=== PATIENT | female | born 2000 | race African-American/Black ===

== ENCOUNTER 2022-04-24 15:39 | Emergency (ER) | payer OTHER, SELFPAY ==
[2022-04-24] VITALS (9 sets, daily range): BP systolic 115–130; BP diastolic 71–83; PULSE 70–98; RESP 16–18; TEMP 36.5; O2SAT 96–100
[2022-04-24] MEDS: HYDROcodone/acetaminophen (*CRX) 5-325 MG TABLET 1 TAB PO (16:42)
--- NOTE | 2022-04-24 17:07 | ED.LOWEXIN ---
HPI - Extremity Injury (Lower) General Chief Complaint: Extremity Injury, Lower Stated Complaint: r foot broken - didnt take pain meds, hurts/swolle Time Seen by Provider: 04/24/22 16:19 History of Present Illness HPI Narrative: Patient is a 22-year-old female here for evaluation of right foot pain via EMS for the past 4 days. Patient states that she was evaluated at [place] upon symptom onset, was diagnosed with a fracture of the right outer foot, and has been wearing a boot and was told to follow-up with orthopedics. She has not taken any prescribed pain medicine for her pain. She presents today via EMS due to pain in her right foot. She has been icing it without relief. Denies any swelling, difficulty moving the foot, fevers, chills. Related Data Home Medications Medication Instructions Recorded Confirmed No Home Medications 04/24/22 04/24/22 Allergies Allergy/AdvReac Type Severity Reaction Status Date / Time No Known Allergies Allergy Verified 04/24/22 15:54 Review of Systems Review of Systems: Gen: Denies fevers or chills Eyes: Denies eye pain or visual change ENT: Denies congestion Respiratory: Denies shortness of breath or cough CV: Denies chest pain or palpitations GI: Denies abdominal pain nausea, emesis or diarrhea denies burning, urgency, frequency or hematuria Musculoskeletal: Reports right foot pain. Denies back pain or muscle pain Neuro: Denies numbness, tingling, weakness or focal weakness Skin: Denies rash Except as documented, all other systems reviewed and negative Exam Narrative: Gen: Alert, oriented, no acute disease Eyes: EOMI, no icterus Pulm: Respirations even and unlabored, symmetric thorax expansion, no audible stridor or visible cyanosis CV: Regular rate per telemetry GI: No distension, no voluntary/involuntary guarding Neuro: AOx4, moves all extremities without apparent difficulty or weakness, follows commands MSK: Walking boot in place. Bony tenderness along lateral aspect of right foot. Able to move toes. Compartments are soft and non-swollen. Forgo complete ROM exam to maintain immobility near fracture. Skin: No jaundice, no visible bruising, rashes, lesions or wounds on exposed skin Psych: Normal mood/affect, insight/judgement good, adequate fund of knowledge, recent/remote memory intact Course Vital Signs Vital signs: Vital Signs Pulse Rate 98 08/13/22 15:42 Respiratory Rate 18 04/24/22 15:42 Blood Pressure 130/79 04/24/22 15:42 Pulse Oximetry 98 04/24/22 15:42 Oxygen Delivery Room Air 04/24/22 15:42 Temperature 97.7 F 04/24/22 16:16 Pulse Rate 82 04/24/22 18:05 Respiratory Rate 18 04/24/22 18:05 Blood Pressure 117/78 04/24/22 18:05 Pulse Oximetry 96 04/24/22 18:05 Oxygen Delivery Room Air 04/24/22 15:42 MDM - Extremity Injury (Lower) MDM Narrative Medical decision making narrative: 22-year-old female here for evaluation of right foot pain for 1 week after being diagnosed with a foot fracture at outside hospital. She has not taken any of her prescribed pain medicine. Here, she is nontoxic-appearing, foot is warm and well-perfused, compartments are soft, there is bony tenderness over the area where she said she had a fracture. She was given her home dose of medication with resolution of her pain. Instructed patient that she may take her pain medicine as prescribed and to follow-up with the orthopedist as scheduled. She was given reasons to return to the ED and she voiced understanding. Discharge Plan Discharge Clinical Impression: Acute foot pain Patient Disposition: Home, Self-Care Condition: Stable Instructions: Antibiotic Form, Foot Fracture in Adults (ED) Additional Instructions: Please take the pain medicine as prescribed by the doctor at [facility]. Return to the ED if you cannot move the foot, the foot feels numb, your pain is uncontrolled by the medication you were prescribed. Follow up with the orthoped
== END 2022-04-24 18:05 | disposition home or self-care (01) ==
PROVIDERS: Emergency Provider Emergency Medicine
DX: M79.671 Pain in right foot (principal); S92.901D Unspecified fracture of right foot, subsequent encounter for fracture with routine healing; X58.XXXD Exposure to other specified factors, subsequent encounter
CPT/HCPCS: 99283; A9270

== ENCOUNTER 2023-06-12 20:53 | Emergency (ER) | payer BC, SELFPAY ==
--- NOTE | ~2023-06-12 | CT_ITS ---
EXAMINATION: CT abdomen pelvis w con DATE: 06/13/2023 03:33 INDICATION: Gastric intestinal hemorrhage. TECHNIQUE: Computed tomography (CT) of the abdomen and pelvis was performed with 100 mL Omnipaque 350 intravenous contrast. Automated exposure control and iterative reconstruction technique were employe d. The dose-length product was 811.63 mGy-cm. COMPARISON: None. FINDINGS: The visualized portions of the lung bases demonstrate mild atelectasis. No pleural effusion . The heart size is normal. No pericardial effusion. The liver, gallbladder, spleen, pancreas, adrena l glands, and kidneys are normal. There is wall thickening of the colon involving the distal transver se colon and proximal descending colon, consistent with colitis. The appendix is normal. There are no dilated loops of bowel. There is physiologic fluid in the pelvis. There are no pathologically enlarg ed lymph nodes. There is no significant stenosis of celiac axis, superior mesenteric artery, or infer ior mesenteric artery. There is mild lumbar spondylosis. IMPRESSION: 1. Colitis centered at the splenic flexure, which may be seen with infectious colitis or ischemic col itis (such as from a hypotensive episode). Reviewed, dictated and finalized at location E. IMPRESSION: 1. Colitis centered at the splenic flexure, which may be seen with infectious c olitis or ischemic colitis (such as from a hypotensive episode).
[2023-06-12 21:11] VITALS: BP 138/80; PULSE 96; RESP 20; TEMP 36.1; O2SAT 100
[2023-06-12 21:19] LABS: Basophils Absolute Auto 0.1 K/mm3 (0.0-0.1); Basophils Percent Auto 0.5 % (0.2-1.2); Eosinophils Absolute Auto 0.1 K/mm3 (0-0.3); Eosinophils Percent Auto 0.5 % (0-4.4); Hematocrit 43.9 % (37.0-47.0); Hemoglobin 14.8 g/dL (12.0-15.0); Immature Granulocyte Absolute 0.04 K/mm3 (0.00-0.031); Immature Granulocyte Percent A 0.3 % (0-0.5); Lymphocytes Absolute Auto 2.72 K/mm3 (0.9-3.2); Lymphocytes Percent Auto 21.4 % (18.3-44.2); Mean Corpuscular HGB Conc 33.7 g/dl (32-36); Mean Corpuscular Hemoglobin 30.6 pg (26-34); Mean Corpuscular Volume 90.9 fl (80-100); Monocytes Absolute Auto 1.4 K/mm3 (0.1-0.6); Monocytes Percent Auto 11.1 % (2.6-8.5); Neutrophils Absolute Auto 8.4 K/mm3 (1.3-6.7); Neutrophils Percent Auto 66.2 % (45.5-73.1); Platelet Count Result 298 k/mm3 (150-375); Red Blood Count 4.83 M/mm3 (4.2-5.4); Red Cell Distribution Width 12.8 % (11.5-14.5); White Blood Count 12.7 K/mm3 (4.5-10.0)
[2023-06-12 21:27] LABS: Alanine Aminotransferase 18 U/L (6-35); Albumin Level 4.4 g/dL (3.5-5.1); Alkaline Phosphatase 70 U/L (38-126); Anion Gap 7 mmol/L (8-16); Aspartate Amino Transferase 21 U/L (14-36); Bilirubin,Total 1.8 mg/dL (0.2-1.3); Blood Urea Nitrogen 7 mg/dL (7-17); Calcium 9.3 mg/dL (8.4-10.2); Carbon Dioxide 25 mmol/L (22-30); Chloride 107 mmol/L (98-107); Estimated CRCL calculation 105 ml/min; Estimated Glomerular Filt Rate > 60; Glucose 107 mg/dL (65-110); INR 1.1; Potassium 3.7 mmol/L (3.4-5.0); Prothrombin Time 14.4 Seconds (11.1-14.7); Sodium 139 mmol/L (137-145)
[2023-06-12 21:28] LABS: Partial Thromboplastin Time 28.3 SECONDS (22.3-36.8)
--- NOTE | 2023-06-12 22:22 | PC.NURSE ---
Patient and visitor come to desk to state she will be leaving cause the wait times. This RN informed patient of risks of leaving before being seen by a provider, and benefits of staying. Patient stated We're going to leave, cause were done waiting. Patient ambulated out of the ED with a steady gait with her visitor by her side.
[2023-06-13] VITALS (39 sets, daily range): BP systolic 94–148; BP diastolic 46–93; PULSE 77–84; RESP 16; O2SAT 95–100
--- NOTE | 2023-06-13 00:49 | PC.NURSE ---
Patient comes to the desk to inform she is still here. This RN informed her that her visitor stated they were leaving and she was removed from the tracker. Patient placed back on the board and is still here.
[2023-06-13] MEDS: MORPHINE SULFATE (*CRX) 4 MG/ML INJ IV PUSH (03:03)
[2023-06-13] MEDS: SODIUM CHLORIDE 0.9% IV 1,000 ML 999 ML IV CONT (03:03)
[2023-06-13] MEDS: metroNIDAZOLE 500 MG/ISO 100ML 500 MG/100 ML BAG 100 MG IVPB (05:42)
--- NOTE | 2023-06-13 05:47 | ED.GIBLEED ---
HPI - GI Bleed General Chief complaint: GI Bleed Stated complaint: Bloody stool, lower abd cramping Time Seen by Provider: 06/13/23 01:54 History of Present Illness HPI Narrative: Patient presents to the emergency department from home. She has had persistent bloody bowel movements for the past 24 hours. Multiple episodes a day. Also lower abdominal discomfort. Denies fevers and chills. Has had nausea without vomiting. Does not take blood thinners. Had similar symptoms but milder a week ago that resolved on their own. Related Data Allergies Allergy/AdvReac Type Severity Reaction Status Date / Time No Known Allergies Allergy Verified 06/12/23 21:15 Review of Systems Review of Systems: Negative except what is documented in the HPI Exam Narrative: GENERAL: Well-appearing, well-nourished, and in no acute distress. HEAD: Normocephalic, atraumatic. EYES: PERRLA and EOMI. ENT: Nares clear, no rhinorrhea or epistaxis. Mucous membranes moist. NECK: Supple. CHEST: Clear to auscultation. No respiratory distress. HEART: Regular rate and rhythm. ABDOMEN: Soft, nondistended. Tender left side and epigastric region EXTREMITIES: Normal range of motion. No edema. SKIN: Warm, dry, no rash. NEURO: No focal deficits. Alert and oriented x3. PSYCH: Normal mood and affect. Course Course Emergency Course: Differential diagnosis includes but not limited to colitis, diverticulitis, acute appendicitis, obstruction, urinary tract infection CAT scan consistent with infectious colitis. Patient has not had any episodes of bloody diarrhea in the emergency department. Her vital signs are stable and her labs are benign. White blood cell count slightly elevated. After getting IV antibiotics will DC patient to home to follow-up with GI Vital Signs Vital signs: Vital Signs Temperature 36.1 C L 06/12/23 21:11 Pulse Rate 96 06/12/23 21:11 Respiratory Rate 20 06/12/23 21:11 Blood Pressure 138/80 06/12/23 21:11 Pulse Oximetry 100 06/12/23 21:11 Oxygen Delivery Room Air 06/12/23 21:11 Temperature 36.1 C L 06/12/23 21:11 Pulse Rate 96 06/12/23 21:11 Respiratory Rate 20 06/12/23 21:11 Blood Pressure 114/57 L 06/13/23 04:46 Pulse Oximetry 99 06/13/23 04:46 Oxygen Delivery Room Air 06/12/23 21:11 MDM - GI Bleed Lab Data 06/12/23 21:14 06/12/23 21:14 Labs: Lab Results 06/12/23 06/12/23 Range/Units 21:13 21:14 WBC 12.7 H (4.5-10.0) K/mm3 RBC 4.83 (4.2-5.4) M/mm3 Hgb 14.8 (12.0-15.0) g/dL Hct 43.9 (37.0-47.0) % MCV 90.9 (80-100) fl MCH 30.6 (26-34) pg MCHC 33.7 (32-36) g/dl RDW 12.8 (11.5-14.5) % Plt Count 298 (150-375) k/mm3 MPV 10.0 (7.4-10.4) fl Immature Gran % (Auto) 0.3 (0-0.5) % Neut % (Auto) 66.2 (45.5-73.1) % Lymph % (Auto) 21.4 (18.3-44.2) % [place] % (Auto) 11.1 H (2.6-8.5) % Eos % (Auto) 0.5 (0-4.4) % Baso % (Auto) 0.5 (0.2-1.2) % Lymph # (Auto) 2.72 (0.9-3.2) K/mm3 [place] # (Auto) 1.4 H (0.1-0.6) K/mm3 Eos # (Auto) 0.1 (0-0.3) K/mm3 Baso # (Auto) 0.1 (0.0-0.1) K/mm3 Abs Immat Gran (auto) 0.04 H (0.00-0.031) K/mm3 Absolute Neuts (auto) 8.4 H (1.3-6.7) K/mm3 Absolute Nucleated RBC 0.0 (0.0-0.012) K/mm3 Nucleated RBC % 0.0 (0.0-0.2) % PT 14.4 (11.1-14.7) Seconds INR 1.1 APTT 28.3 (22.3-36.8) SECONDS Sodium 139 (137-145) mmol/L Potassium 3.7 (3.4-5.0) mmol/L Chloride 107 (98-107) mmol/L Carbon Dioxide 25 (22-30) mmol/L Anion Gap 7 L (8-16) mmol/L BUN 7 (7-17) mg/dL Creatinine 0.90 (0.7-1.0) mg/dL Estim Creat Clear Calc 105 ml/min Estimated GFR > 60 (59 - ) Glucose 107 (65-110) mg/dL Calcium 9.3 (8.4-10.2) mg/dL Total Bilirubin 1.8 H (0.2-1.3) mg/dL AST 21 (14-36) U/L ALT 18 (6-35) U/L Alkaline Phosphatase 70 (38-126) U/L Total Protein 8.0 (6.3-8.2) g/dL Albumin 4.4 (3
[2023-06-13] MEDS: CIPROFLOXACIN 400 MG/D5W 200ML 200 ML 200 MG IVPB (06:48)
--- NOTE | 2023-06-13 07:12 | PC.NURSE ---
Report to SHYAM Pratt.
== END 2023-06-13 08:07 | disposition home or self-care (01) ==
PROVIDERS: Emergency Provider Emergency Medicine
DX: K52.9 Noninfective gastroenteritis and colitis, unspecified (principal); K92.1 Melena
CPT/HCPCS: 36415; 74177; 80053; 81025; 85025; 85610; 85730; 86850; 86900; 86901; 96361; 96365; 96367; 96375; 99284; J0744; J1836; J2270; J7030; Q9967

== ENCOUNTER 2023-07-01 01:30 | Day surgery (SDC) | payer BC, SELFPAY ==
[2023-06-22 13:15] VITALS: BMI 33.0
[2023-07-01 12:26] VITALS: BP 124/81; PULSE 93; RESP 18; TEMP 36.3; O2SAT 100
[2023-07-01 12:28] VITALS: BMI 32.1
[2023-07-01] MEDS: LACTATED RINGERS 1,000 ML 150 ML IV CONT (12:39)
--- NOTE | 2023-07-01 12:48 | WPDHPUPDATE1 ---
History and Physical Update Update Date/Time: 07/01/23 12:48 History and Physical has been reviewed, including an updated exam of the patient. There are NO changes in the patient's condition. Risks, benefits, and alternatives have been discussed and questions answered. Patient agrees to proceed with procedure.
--- NOTE | 2023-07-01 12:50 | WPDANESEPPF ---
Anes - Initial Pre Proc Eval Procedure: Operation Date: 07/01/23 13:30 Proposed Procedures p Colonoscopy - Guillaume Peterson MD Date/Time: 07/01/23 12:50 Surgeon: Guillaume Peterson MD Pre Op Diagnosis: Noninfective Gastroenteritis and Colitis,Unspecif Patient Data Age: 23 Gender: F Height: 1.73 m Weight: 95.7 kg Last Vital Signs Temp 97.4 F L 07/01/23 12:26 Pulse 93 07/01/23 12:26 Resp 18 07/01/23 12:26 BP 124/81 07/01/23 12:26 Pulse Ox 100 07/01/23 12:26 O2 Del Method Room Air 07/01/23 12:26 Allergies Allergy/AdvReac Type Severity Reaction Status Date / Time No Known Allergies Allergy Verified 07/01/23 12:25 Home Medications Medication Instructions Recorded Confirmed Type ciprofloxacin HCl 500 mg tablet 500 mg PO Q12H #14 tabs 06/13/23 07/01/23 Rx (Cipro) metronidazole 500 mg tablet 500 mg PO Q8H #20 tabs 06/13/23 07/01/23 Rx tramadol 50 mg tablet 50 mg PO Q6H PRN pain #20 tabs 06/13/23 07/01/23 Rx Patient hx anesthesia problems: none Family hx anesthesia problems: none Results Review: All pre-operative results and documents have been reviewed as part of the pre-operative evaluation. FOR[facility]LY [facility], [facility] Past Medical History Medical History (Updated 06/16/23 @ 15:09 by PARTH JohnsonN-[email or web address]) Diarrhea Social History Social History Smoking status: Never smoker Drinks per week: 3 Substance use type: marijuana Other substance usage details: Uses THC to help sleep or for pain at times Living arrangements: with family Anes - Eval Final PreProcedure Day of Procedure 07/01/23 12:50 Patient weight: obese Heart: regular rate and rhythm Lungs: clear to auscultation Airway: Mallampati scale class II Neurological: alert and oriented Last oral intake: >/= 8 hours ASA classification: II Emergent: no Anesthetic plan: proceed Anesthesia type and monitoring: general GIVS and standard monitoring Results Review: All pre-operative results and documents have been reviewed as part of the pre-operative evaluation. Informed Consent: The patient's anesthetic plan and its attendant risks and benefits were discussed with the patient/family/POA. Questions were solicited and answers provided to the satisfaction of the patient/family/POA.
[2023-07-01 13:12] VITALS: BP 106/79; PULSE 71; RESP 20; O2SAT 100
[2023-07-01 13:22] VITALS: BP 110/78; PULSE 70; RESP 21; O2SAT 100
[2023-07-01 13:32] VITALS: PULSE 69; RESP 20; O2SAT 100
== END 2023-07-01 13:39 | disposition home or self-care (01) ==
PROVIDERS: Visit Provider Internal Medicine Gastroenterology
PROC: 0DJD8ZZ Inspection of Lower Intestinal Tract, Via Natural or Artificial Opening Endoscopic (ICD-10-PCS; CPT 45378; principal; 2023-07-01 13:30)
DX: Z09 Encounter for follow-up examination after completed treatment for conditions other than malignant neoplasm (principal); Z87.19 Personal history of other diseases of the digestive system; F12.90 Cannabis use, unspecified, uncomplicated; E66.9 Obesity, unspecified; Z68.32 Body mass index [BMI] 32.0-32.9, adult
CPT/HCPCS: 45378; J2704; J7120